=== PATIENT | female | born 1965 | race African-American/Black ===

== ENCOUNTER 2024-04-17 18:26 | Observation (INO) | payer OTHER ==
[2024-04-17 21:32] LABS: Absolute Basophils 0.1 K/uL (0-0.5); Absolute Eosinophils 0.1 K/uL (0-0.5); Absolute Lymphocytes (CBC) 2.7 K/uL (0.7-4.9); Absolute Monocytes 0.6 K/uL (0.1-1.3); Absolute Neutrophil 5.5 K/uL (1.8-8.0); Basophils % 0.9 % (0-1.3); Eosinophils % 1.3 % (0-4.4); Hematocrit 35.6 % (36.0-45.0); Lymphocytes % 30.5 % (15.3-44.8); MCH 30.3 pg (27.0-35.0); MCHC 33.6 g/dL (32.0-36.0); Monocytes % 6.8 % (3.3-12.3); Neutrophils % 60.5 % (41.7-73.7); Nucleated Red Blood Cells % 0.1 % (0-0); Platelets 361 thou/uL (152-406); RBC Red Blood Cell Count 3.95 M/uL (3.86-4.86); Red Cell Distribution Width 12.6 % (12.1-15.2)
[2024-04-17 21:35] LABS: PT Prothrombin Time 11.7 SECONDS (9.4-12.5); PTT, Activated Partial Thromb 34.1 SECONDS (24.3-36.9); Protime INR 1.05
[2024-04-17 21:41] LABS: Anion Gap 6.5 mEq/L (5.0-15.0); Magnesium 2.1 mg/dL (1.6-2.4); Potassium 3.5 mEq/L (3.5-5.1); Troponin High Sensitivity 11.4 pg/mL (<58.9)
--- NOTE | 2024-04-17 22:19 | RAD REPORT ---
EXAM: CT brain without contrast HISTORY: right sided weakness and numbness COMPARISON: None TECHNIQUE: Multiple contiguous axial images were obtained and a CT of the brain without contrast. Sag ittal and coronal reformats were performed. One or more of the following dose reduction techniques were used: Automated exposure control, adjust ment of the mA and/or kV according to patient size, and/or iterative reconstruction. FINDINGS: No evidence of hydrocephalus, intracranial hemorrhage, or extra-axial fluid collection. Moderate brain atrophy with moderate periventricular and deep white matter chronic microvascular isc hemic changes present. Gliosis is noted in the left frontal region suggesting remote infarction. The calvarium is intact. The visualized paranasal sinuses and mastoid air cells are essentially clear . IMPRESSION: No evidence of acute intracranial abnormality. If there is persistent clinical concern for CVA, MR examination is recommended for further characteri zation.
--- NOTE | 2024-04-17 22:24 | RAD REPORT ---
EXAMINATION: CTA HEAD CLINICAL INDICATION: right sided weakness and numbness TECHNIQUE: Axial CT images were obtained through the head after intravenous contrast utilizing angiog raphic protocol with 3D post-processing (maximum intensity projection images, volume rendered images and/or shaded surface rendered images). One or more of the following dose reduction technique s were used: Automated exposure control, adjustment of the mA and/or kV according to patient size, and/or iterative reconstruction. Unless otherwise specified, incidental findings do not require dedic ated imaging follow-up. COMPARISON: No prior exam. FINDINGS: ICA: The petrous, cavernous, and supraclinoid segments of the bilateral internal carotid arteries are normal. The ophthalmic artery origins are visualized and normal. The posterior communicating arteries are patent. JARRED: Anterior cerebral arteries are normal bilaterally. The anterior communicating artery is patent. MCA: Middle cerebral arteries are normal bilaterally. CIGAR SORTER: Posterior cerebral arteries are normal bilaterally. Vertebrobasilar: The vertebral arteries are patent. The basilar artery is normal in appearance. Left vertebral artery is mildly dominant. 3D images confirm these findings. IMPRESSION: No significant flow abnormality is identified.
--- NOTE | 2024-04-17 22:27 | RAD REPORT ---
EXAMINATION: CTA NECK CLINICAL INDICATION: right sided numbness and weakness TECHNIQUE: Axial CT images were obtained from the aortic arch to the skull base after intravenous con trast utilizing angiographic protocol with 3D post-processing (maximum intensity projection images, volume rendered images and/or shaded surface rendered images). One or more of the following dose redu ction techniques were used: Automated exposure control, adjustment of the mA and/or kV according to patient size, and/or iterative reconstruction. Unless otherwise specified, incidental findings do not require dedicated imaging follow-up. COMPARISON: No prior exam. FINDINGS: AORTA: The imaged aortic arch is normal. CCA: The common carotid arteries are patent and normal in caliber. ICA/ECA: Bilateral internal and external carotid arteries are patent. There is no significant interna l carotid artery stenosis. VERTEBRAL: The cervical vertebral arteries are patent. Left vertebral artery is dominant. SOFT TISSUE: No significant neck soft tissue abnormalities. The visualized lung apices are clear. 3D images confirm these findings. IMPRESSION: No significant flow abnormality of the neck vessels is identified. NASCET criteria used. Mild 0-49% stenosis Moderate 50-69% stenosis Severe 70-99% stenosis
--- NOTE | 2024-04-17 22:42 | EDPHYS ---
Physician Documentation [facility] Name: Ro Malone Age: 58 yrs Sex: Female : 1965 Arrival Date: 04/17/2024 Time: 18:26 Bed 14 Private MD: ED Physician Juaquin Walters HPI: 04/17 19:10 This 58 yrs old Black Female presents to ER via Ambulatory with complaints of right rn side numbness and weakness. 19:10 The patient presents to the emergency department with weakness of the right upper rn extremity, right lower extremity, paresthesias of the right lower extremity, right upper extremity. Onset: The symptoms/episode began/occurred 3 day(s) ago. Context:. Severity of symptoms: At their worst the symptoms were mild in the emergency department the symptoms are unchanged. Current symptoms: Currently, the patient is not experiencing any symptoms. The patient has experienced a previous episode. The patient has not recently seen a physician. Pt reports 2-3 days of right sided weakness and numbness, has not gone away but waxes and wanes. No head injury or trauma. no fever. No chest pain or abd pain. Has had a stroke in past with residual right sided weakness. Has had right facial weakness since younger. Family and patient report these symptoms are new and worse than her baseline. No vision or speech problem. . Historical: - Allergies: 18:42 No Known Allergies; ap3 - PMHx: 18:42 Cerebrovascular accident; ap3 - Immunization history:: Client reports receiving the 2nd dose of the Covid vaccine. - Infectious Disease History:: Denies. - Social history:: Smoking status: Patient denies any tobacco usage or history of. - Family history:: not pertinent. - Hospitalizations: : No recent hospitalization is reported. ROS: 19:10 Constitutional: Negative for fever, chills, and weight loss, Neck: Negative for injury, rn pain, and swelling, Cardiovascular: Negative for chest pain, palpitations, and edema, Respiratory: Negative for shortness of breath, cough, wheezing, and pleuritic chest pain, Abdomen/GI: Negative for abdominal pain, nausea, vomiting, diarrhea, and constipation, Back: Negative for injury and pain, MS/Extremity: Negative for injury and deformity, Skin: Negative for injury, rash, and discoloration, Neuro: + right sided weakness and numbness Exam: 19:10 Constitutional: This is a well developed, well nourished patient who is awake, alert, rn and in no acute distress. Head/Face: Normocephalic, atraumatic. Eyes: Pupils equal round and reactive to light, extra-ocular motions intact. Cardiovascular: Regular rate and rhythm. No pulse deficits. Respiratory: No increased work of breathing, no retractions or nasal flaring. Abdomen/GI: Soft, non-tender Skin: Warm, dry MS/ Extremity: Pulses equal, no cyanosis. Neuro: Awake and alert, GCS 15, oriented to person, place, time, and situation. Cranial nerves II-XII grossly intact. Motor strength 4/5 RUE/RLE, 5/5 LLE/LUE. Deecreased sensation to touch RUE/RLE. 22:00 ECG was reviewed by the Attending Physician. rn Vital Signs: 18:41 BP 167 / 103; Pulse 79; Resp 17; Temp 98.2(O); Pulse Ox 99% on R/A; Weight 99.79 kg; ap3 Height 5 ft. 4 in. ; 19:05 BP 145 / 72; Pulse 81; Resp 18; Pulse Ox 99% ; kj2 19:48 BP 125 / 79; Pulse 81; Resp 18; Temp 98.1(O); Pulse Ox 100% on R/A; kj2 21:17 BP 136 / 90; Pulse 69; Resp 18; Pulse Ox 98% on R/A; kj2 23:12 BP 153 / 97; Pulse 88; Resp 20; Pulse Ox 100% ; kj2 18:41 Body Mass Index 37.76 (99.79 kg, 162.56 cm) ap3 MDM: 18:56 Medical Screening Exam initiated rn 22:37 Data reviewed: vital signs, nurses notes, lab test result(s), radiologic studies, CT rn scan, and as a result, I will admit patient. 22:38 Counseling: I had a detailed discussion with the patient and/or guardian regarding the rn historical points, exam findings, and any diagnostic results supporting the discharge/admit diagnosis, lab results, radiology results, the need for further work-up and treatment in the hospital. Response to treatment: There is no appreciated change of the patient's symptoms at this time. 04/17 19:07 Order name: Basic Metabolic Panel; Complete Time: 21:58 rn 04/17 19:07 Order name: CBC with Diff; Complete Time: 21:58 rn 04/17 19:07 Order name: High Sensitivity Troponin; Complete Time: 21:58 rn 04/17 19:07 Order name: Magnesium; Complete Time: 21:58 rn 04/17 19:07 Order name: Protime (+inr); Complete Time: 21:58 rn 04/17 19:07 Order name: Ptt, Activated; Complete Time: 21:58 rn 04/17 23:23 Order name: Magnesium [facility] 04/17 23:23 Order name: Phosphorus [facility] 04/17 23:23 Order name: Lipid Profile [facility] 04/17 23:23 Order name: Lipid Profile [facility] 04/17 19:07 Order name: CT Neck Angio; Complete Time: 22:28 rn 04/17 19:07 Order name: CT Head Brain wo Cont; Complete Time: 22:28 rn 04/17 19:13 Order name: Head angio; Complete Time: 22:28 [facility] 04/17 23:23 Order name: Echo with Doppler [facility] 04/17 23:23 Order name: Stroke Protocol [facility] 04/17 23:24 Order name: Brain Wo Cont [facility] 04/17 19:07 Order name: EKG; Complete Time: 19:07 rn 04/17 23:23 Order name: CONS Physician Consult [facility] 04/17 23:23 Order name: IRF Screen [facility] 04/17 23:23 Order name: Physical Therapy Consult [facility] 04/17 23:23 Order name: Speech Therapy Consult [facility] 04/17 23:28 Order name: Occupational Therapy Consult [facility] 04/17 23:28 Order name: Speech Therapy Consult [facility] 04/17 19:07 Order name: Accucheck; Complete Time: 23:15 rn 04/17 19:07 Order name: Cardiac monitoring; Complete Time: 23:14 rn 04/17 19:07 Order name: EKG - Nurse/Tech; Complete Time: 21:16 rn 04/17 19:07 Order name: IV Saline Lock; Complete Time: 21:16 rn 04/17 19:07 Order name: Labs collected and sent; Complete Time: 21:16 rn 04/17 19:07 Order name: O2 Per Protocol; Complete Time: 21:16 rn 04/17 19:07 Order name: O2 Sat Monitoring; Complete Time: 21:16 rn 04/17 19:07 Order name: Stroke Swallow Screen; Complete Time: 21:16 rn EC:00 Rate is 76 beats/min. Rhythm is irregular. Left axis deviation noted. QRS is positive rn in lead aVF and negative in lead I. QRS interval is prolonged at 140 msec. QT interval is normal. No Q waves. T waves are Normal. No ST changes noted. Clinical impression: NSR w/ Non-specific ST/T Changes. Interpreted by me. Reviewed by me. Administered Medications: 23:02 Drug: foLIC Acid IVPB 1 mg IVPB once Route: IVPB; Site: right antecubital; kj2 23:02 Follow up: IV Status: Completed infusion; IV Intake: 0.2ml kj2 23:02 Follow up: IV Status: Completed infusion kj2 23:02 Follow up: Response: No adverse reaction; IV Status: Completed infusion; IV Intake: kj2 0.2ml 23:12 Drug: Aspirin PO Chewable Tablet 324 mg PO once; 81 mg tablets x 4 Route: PO; kj2 23:38 Follow up: Response: No adverse reaction kj2 23:12 Drug: Clopidogrel PO 75 mg PO once Route: PO; kj2 23:38 Follow up: Response: No adverse reaction kj2 Disposition Summary: 04/17/24 22:41 Hospitalization Ordered Notes: Hospitalization Status: Observation rn Provider: Prince Tiesha rn Location: Telemetry/MedSurg (observation) rn Condition: Stable rn Problem: new rn Symptoms: are unchanged rn Bed/Room Type: Standard rn Room Assignment: 411(04/17/24 23:28) cg Diagnosis - Weakness rn - Paresthesia of skin rn - Cerebral infarction, unspecified rn Forms: - Medication Reconciliation Form rn - SBAR form rn - Leadership Thank You Letter rn Signatures: Dispatcher [employer] EDMS Juaquin Walters MD MD rn Garcia, Cindy RN RN Lydia Best RN RN ap3 Junie Sung RN RN kj2 Corrections: (The following items were deleted from the chart) 19:07 19:07 Head Brain Wo Cont+CT.RAD.BRZ ordered. EDMS EDMS 23: 22:41 rn cg
--- NOTE | 2024-04-17 22:42 | ER ---
Nurse's Notes [facility] Name: Ro Malone Age: 58 yrs Sex: Female : 1965 Arrival Date: 04/17/2024 Time: 18:26 Bed 14 Private MD: Diagnosis: Weakness;Paresthesia of skin;Cerebral infarction, unspecified Presentation: 04/17 18:41 Chief complaint: Patient states: she has been experiencing right sided weakness and ap3 numbness for "a few days". 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 Coronavirus screen: At this time, the client does not indicate any symptoms associated with coronavirus-19. Ebola Screen: No symptoms or risks identified at this time. Initial Sepsis Screen: Does the patient meet any 2 criteria? No. Patient's initial sepsis screen is negative. Does the patient have a suspected source of infection? No. Patient's initial sepsis screen is negative. Risk Assessment: Do you want to hurt yourself or someone else? Patient reports no desire to harm self or others. Onset of symptoms is unknown. 18:41 Method Of Arrival: Ambulatory ap3 18:44 Acuity: DARCI 2 ap3 Triage Assessment: 18:43 General: Appears in no apparent distress. Behavior is calm, cooperative, appropriate ap3 for age. Pain: Denies pain. Neuro: Level of Consciousness is awake, alert, obeys commands, Oriented to person, place, time, situation, Weakness in right leg(s). Neuro: patient states she has right sided deficits from previous stroke. Cardiovascular: Patient's skin is warm and dry. Respiratory: Airway is patent Respiratory effort is even, unlabored, Respiratory pattern is regular, symmetrical. Historical: - Allergies: 18:42 No Known Allergies; ap3 - PMHx: 18:42 Cerebrovascular accident; ap3 - Immunization history:: Client reports receiving the 2nd dose of the Covid vaccine. - Infectious Disease History:: Denies. - Social history:: Smoking status: Patient denies any tobacco usage or history of. - Family history:: not pertinent. - Hospitalizations: : No recent hospitalization is reported. Screenin:44 Abuse screen: Denies threats or abuse. Nutritional screening: No deficits noted. ap3 Tuberculosis screening: No symptoms or risk factors identified. 19:05 [facility] ED Fall Risk Assessment (Adult) History of falling in the last 3 months, kj2 including since admission No falls in past 3 months (0 pts) Confusion or Disorientation No (0 pts) Intoxicated or Sedated No (0 pts) Impaired Gait No (0 pts) Mobility Assist Device Used No (0 pt) Altered Elimination No (0 pt) Score/Fall Risk Level 0 - 2 = Low Risk Maintained a safe environment, Educated pt \\T\\ family on fall prevention, incl call for assistance when getting out of bed, Hourly rounding (assess needs \\T\\ fall precautionary measures) done. Assessment: 19:05 General: Appears in no apparent distress. Behavior is calm, cooperative. Pain: Denies kj2 pain. Neuro: Level of Consciousness is awake, alert, obeys commands. Cardiovascular: Patient's skin is warm and dry. Respiratory: Airway is patent Respiratory effort is even, unlabored. GI: No signs and/or symptoms were reported involving the gastrointestinal system. : No signs and/or symptoms were reported regarding the genitourinary system. 21:16 Reassessment: PATIENT DRANK 4OZ OF WATER WITHOUT DIFFICULTY. kj2 21:17 Reassessment: Patient appears in no apparent distress at this time. Patient and/or kj2 family updated on plan of care and expected duration. Pain level reassessed. Patient is alert, oriented x 3, equal unlabored respirations, skin warm/dry/pink. 22:15 Reassessment: Patient appears in no apparent distress at this time. Patient and/or kj2 family updated on plan of care and expected duration. Pain level reassessed. Patient is alert, oriented x 3, equal unlabored respirations, skin warm/dry/pink. 23:32 Reassessment: Patient appears in no apparent distress at this time. Patient and/or kj2 family updated on plan of care and expected duration. Pain level reassessed. Patient is alert, oriented x 3, equal unlabored respirations, skin warm/dry/pink. 23:57 Reassessment: Patient appears in no apparent distress at this time. Patient and/or kj2 family updated on plan of care and expected duration. Pain level reassessed. Patient is alert, oriented x 3, equal unlabored respirations, skin warm/dry/pink. Vital Signs: 18:41 BP 167 / 103; Pulse 79; Resp 17; Temp 98.2(O); Pulse Ox 99% on R/A; Weight 99.79 kg; ap3 Height 5 ft. 4 in. ; 19:05 BP 145 / 72; Pulse 81; Resp 18; Pulse Ox 99% ; kj2 19:48 BP 125 / 79; Pulse 81; Resp 18; Temp 98.1(O); Pulse Ox 100% on R/A; kj2 21:17 BP 136 / 90; Pulse 69; Resp 18; Pulse Ox 98% on R/A; kj2 23:12 BP 153 / 97; Pulse 88; Resp 20; Pulse Ox 100% ; kj2 18:41 Body Mass Index 37.76 (99.79 kg, 162.56 cm) ap3 ED Course: 18:29 Patient arrived in ED. ra3 18:44 Triage completed. ap3 18:44 Arm band placed on right wrist. ap3 18:44 Patient has correct armband on for positive identification. Bed in low position. Call ap3 light in reach. Adult w/ patient. 18:56 Juaquin Walters MD is Attending Physician. rn 19:05 Provided Education on: CALL LIGHT. kj2 19:12 Junie Sung RN is Primary Nurse. kj2 21:05 Inserted saline lock: 20 gauge in right antecubital area, using aseptic technique. bm8 ,using aseptic technique. ultrasound guided Blood collected. Flushed with 10 mL NS. 21:07 Radiology exam delayed due to lab results not completed at this time. IV insertion mw3 attempt and/or patient not having appropriate IV at this time. 21:16 No provider procedures requiring assistance completed. kj2 22:08 CT Neck Angio In Process Unspecified. EDMS 22:08 CT Head Brain wo Cont In Process Unspecified. EDMS 22:08 Head angio In Process Unspecified. EDMS 22:40 Prince Motley MD is Hospitalizing Provider. rn 23:33 Assisted to bathroom. kj2 23:40 Patient admitted, IV remains in place. kj2 Administered Medications: 23:02 Drug: foLIC Acid IVPB 1 mg IVPB once Route: IVPB; Site: right antecubital; kj2 23:02 Follow up: IV Status: Completed infusion; IV Intake: 0.2ml kj2 23:02 Follow up: IV Status: Completed infusion kj2 23:02 Follow up: Response: No adverse reaction; IV Status: Completed infusion; IV Intake: kj2 0.2ml 23:12 Drug: Aspirin PO Chewable Tablet 324 mg PO once; 81 mg tablets x 4 Route: PO; kj2 23:38 Follow up: Response: No adverse reaction kj2 23:12 Drug: Clopidogrel PO 75 mg PO once Route: PO; kj2 23:38 Follow up: Response: No adverse reaction kj2 Medication: 19:36 VIS not applicable for this client. kj2 Intake: 23:02 IV: 0ml; Total: 0ml. kj2 23:02 IV: 0ml; Total: 0ml. kj2 Outcome: 22:41 Decision to Hospitalize by Provider. rn 23:39 Admitted to Med/surg via wheelchair, room 411, kj2 23:39 Condition: stable 23:39 Instructed on the need for admit, 04/18 01:02 Patient left the ED. kj2 Signatures: Dispatcher [employer] EDMS Juaquin Walters MD MD rn Prokisch, Amanda, RN RN ap3 Denise Yanes 3 Maris Andrade 3 You Taylor RN RN bm8 Junie Sung, RN RN kj2
[2024-04-17] MEDS ORDERED: CLOPIDOGREL 75 MG TABLET ONE (22:54)
[2024-04-17] MEDS ORDERED: ASPIRIN 81 MG CHEWABLE TABLET ONE (22:55)
[2024-04-17] MEDS ORDERED: FOLIC ACID 5 MG/ML VIAL ONE (22:56)
[2024-04-17] MEDS ORDERED: ONDANSETRON 4 MG/2 ML VIAL IV PRN (23:18)
--- NOTE | 2024-04-17 23:26 | P.HP ---
Certification for Inpatient Patient admitted to: Observation With expected LOS: <2 Midnights Practitioner: I am a practitioner with admitting privileges, knowledge of patient current condition, hospital course, and medical plan of care. Services: Services provided to patient in accordance with Admission requirements found in Title 42 Section 412.3 of the Code of Federal Regulations Patient History Date of Service: 04/17/24 Reason for admission: Right-sided numbness and tingling History of Present Illness: Patient is a 58-year-old -[place] female with a past medical history of hypertension and obesity. She presented to the ER complaining of acute onset of right-sided numbness and tingling which started the morning of admission. She also has weakness on that side. Patient has a normal speech. Workup in the ER included the CT head and CTA head and neck all of which were unremarkable. Patient is being admitted for stroke workup. Physical Examination - Physical Exam General: Acute distress HEENT: Atraumatic, Normocephalic, EOMI Respiratory: Clear to auscultation bilaterally, Normal air movement Cardiovascular: No edema, Normal pulses, Regular rate/rhythm, Normal S1 S2 Neurological: Normal speech, Abnormal tone, Abnormal sensation - Studies Laboratory Data (last 24 hrs) 04/17/24 04/17/24 04/17/24 21:02 21:02 21:02 WBC 9.00 Hgb 12.0 Hct 35.6 L Plt Count 361 PT 11.7 INR 1.05 APTT 34.1 Sodium 138 Potassium 3.5 BUN 13 Creatinine 1.20 H Glucose 116 H Magnesium 2.1 Assessment and Plan - Problems (Diagnosis) (1) CVA (cerebral vascular accident) Current Visit: Yes Status: Acute (2) Hypertension Current Visit: Yes Status: Acute - Plan Assessment This is a 58-year-old -[place] female with hypertension obesity who is being admitted for CVA workup after she presented with right-sided numbness and tingling, and possibly weakness. CT head and CTA head and neck were unremarkable. Patient still has focal deficit on physical exam. Suspected CVA Hypertension Obesity Plan: Will admit under observation with telemetry Formal brain MRI ordered Will also check for 2D echo and lipid panel PT/OT before discharge Continue patient on aspirin and atorvastatin Nonurgent consult to neurology DVT prophylaxis - Advance Directives Does patient have a Living Will: No Does patient have a Durable POA for Healthcare: No
[2024-04-18] MEDS: NA CHLORIDE 0.9% 1,000 ML IV SCH (01:32)
[2024-04-18 01:52] VITALS: BMI 39.4
[2024-04-18] MEDS ORDERED: INFLUENZA VACCINE (for 6+ mo) 0.5 ML DOSE IMVAC ONE (08:00)
[2024-04-18] MEDS: ASPIRIN EC 81 MG TAB PO SCH (08:29)
[2024-04-18] MEDS: POTASSIUM 25 MEQ EFFERV TAB PO ONE (08:29)
[2024-04-18] MEDS: ENOXAPARIN 40 MG/0.4 ML SQ SCH (08:30)
[2024-04-18 08:40] VITALS: O2SAT 94
[2024-04-18] MEDS: ALPRAZOLAM 0.25 MG TABLET PO ONE (09:45)
[2024-04-18] MEDS: lisinopriL 20 MG TAB PO SCH (09:58)
[2024-04-18] MEDS ORDERED: SODIUM CHLORIDE 0.9% 10ML INJ IV PRN (09:58)
[2024-04-18] MEDS: carvediloL 6.25 MG TAB PO SCH (09:59)
[2024-04-18] MEDS: AMLODIPINE 10 MG TAB PO SCH (10:00)
[2024-04-18] MEDS: LORazepam 2 MG/ML VIAL IV ONE (10:06)
[2024-04-18] MEDS: levETIRAcetam 500 MG TAB PO SCH (10:06)
[2024-04-18] MEDS: PANTOPRAZOLE 40 MG INJ IVP SCH (10:07)
--- NOTE | 2024-04-18 10:26 | P.PN ---
Subjective Date of Service: 04/18/24 Chief Complaint: Right-sided numbness and tingling No change in patient's condition she has been having this right sided numbness arm and leg started yesterday. With some weakness and has a history of stroke history of seizures some right sided symptoms before CT scan of the head was negative patient is scheduled for an MRI planing of some abdominal discomfort Review of Systems is unable to be obtained Physical Examination - Vital Signs Temperature: 97.2 F Blood Pressure: 138/78 Pulse: 80 Respirations: 16 Pulse Ox (%): 96 - Physical Exam General: Alert, Oriented x3, Mild distress HEENT: Atraumatic Neck: Supple Respiratory: Clear to auscultation bilaterally Cardiovascular: No edema, Normal pulses Gastrointestinal: Normal bowel sounds, Soft and benign Neurological: Normal speech (Has mild weakness of the right side drift of the right arm focality raising her right leg facial deficit no speech passed bedside swallowing) - Studies Laboratory Data (last 24 hrs) 04/17/24 04/17/24 04/17/24 21:02 21:02 21:02 WBC 9.00 Hgb 12.0 Hct 35.6 L Plt Count 361 PT 11.7 INR 1.05 APTT 34.1 Sodium 138 Potassium 3.5 BUN 13 Creatinine 1.20 H Glucose 116 H Magnesium 2.1 Assessment And Plan - Current Problems (Diagnosis) (1) CVA (cerebral vascular accident) Current Visit: Yes Status: Acute Plan: Patient is 58 years of age with prior history of stroke admitted with right- sided weakness scan of the head is so far negative for stroke MRI is pending history of seizures daughter at the bedside she has been complaining of some abdominal discomfort has been scheduled for an MRI neurology consult states that she wants to take her to [facility] for further follow-up patient's medications have been resumed from hypertension there is no history of cardiopulmonary problems labs chemistries all reviewed unremarkable patient given 1 dose of Ativan prior to the MRI Qualifiers: Laterality of affected vessel: unspecified
--- NOTE | 2024-04-18 11:24 | RAD REPORT ---
EXAMINATION: MRI BRAIN WITHOUT CONTRAST CLINICAL INDICATION: CVA TECHNIQUE: Multiplanar multisequence MR images of the brain were obtained without intravenous contras t. Unless otherwise specified, incidental findings do not require dedicated imaging follow-up. COMPARISON: 04/17/2024 FINDINGS: INTRACRANIAL: Diffusion-weighted images show no acute or early subacute infarction. There is mild bra in atrophy with mildT2/FLAIR hyperintensities in the periventricular and deep white matter regions, likely representing chronic microvascular ischemic changes. There is no mass effect or midline shift. No abnormal extraaxial fluid collection. Gliosis is noted left medial frontal lobe likely related to old infarct. VASCULATURE: Normal signal voids in the larger intracranial arteries and dural venous sinuses. SINUSES: The paranasal sinuses and mastoid air cells are predominantly clear. BONE: The marrow signal pattern is within normal limits. IMPRESSION: Negative for acutre CVA or other acute intracranial finding. Evidence of prior infarction medial left frontal lobe.
--- NOTE | 2024-04-18 12:35 | EKG ---
Test Date: 2024-04-17 Test Time: 19:42:05 Biology Manager: ASTRID MEASUREMENT RESULTS: Intervals: Rate: 76 KS: 178 QRSD: 140 QT: 414 QTc: 465 [place]: P: 49 KS: 178 QRS: -33 T: 21 INTERPRETIVE STATEMENTS: Sinus rhythm with occasional premature ventricular complexes Left axis deviation Right bundle branch block Abnormal ECG No previous ECG available for comparison Electronically Signed On 04-18-24 12:34:19 CDT by London Johnson
--- NOTE | 2024-04-18 13:41 | ECHO ---
HEIGHT: 5 ft 4 in WEIGHT: 230 lb 0 oz DATE OF STUDY: 04/18/[address]: Prince Tunde Motley MD 2-DIMENSIONAL: YES M.MODE: YES DOPPLER: YES COLOR FLOW: YES TDS: PORTABLE: YES DEFINITY: BUBBLE STUDY: DIAGNOSIS: STROKE CARDIAC HISTORY: CATHERIZATION: NO SURGERY: NO PROSTHETIC VALVE: NO PACEMAKER: NO MEASUREMENTS (cm) DIASTOLIC (NORMALS) SYSTOLIC (NORMALS) IVSd 1.3 (0.6-1.2) LA Diam 2.4 (1.9-4.0) LVEF 60-65% LVIDd 3.6 (3.5-5.7) LVIDs 2.2 (2.0-3.5) %FS 38% LVPWd 1.3 (0.6-1.2) Ao Diam 2.5 (2.0-3.7) 2 DIMENSIONAL ASSESSMENT: RIGHT ATRIUM: NORMAL LEFT ATRIUM: NORMAL RIGHT VENTRICLE: NORMAL LEFT VENTRICLE: NORMAL TRICUSPID VALVE: NORMAL MITRAL VALVE: NORMAL PULMONIC VALVE: NORMAL AORTIC VALVE: NORMAL PERICARDIAL EFFUSION: NONE AORTIC ROOT: NORMAL LEFT VENTRICULAR WALL MOTION: NORMAL DOPPLER/COLOR FLOW: NORMAL COMMENTS: 1. NORMAL LEFT VENTRICULAR SYSTOLIC FUNCTION, EJECTION FRACTION 60-65%, NORMAL WALL MOTION 2. NORMAL DIASTOLIC FUNCTION TECHNOLOGIST: ALLEN PATE
--- NOTE | 2024-04-18 15:23 | P.DS ---
Admission Date: 04/18/24 Discharge Date: 04/18/24 Disposition: ROUTINE DISCHARGE Discharge Condition: FAIR Reason for Admission: Right-sided numbness and tingling - Problems (1) CVA (cerebral vascular accident) Current Visit: Yes Status: Acute Qualifiers: Laterality of affected vessel: unspecified Brief History of Present Illness: See progress note Hospital Course: See progress notes. Admitted with Right sided paresis. NE of stroke on CT and MRI. ECHO normal S/B Dr. Infante. Poss MAIRA paralysis or cramps. Pt discahrged home on Baclofen and Magnesium, Daughter present To f/u with Neurology. passed swallow test Vital Signs/Physical Exam: Temp Pulse Resp BP Pulse Ox 97.9 F 73 16 137/81 95 04/18/24 12:00 04/18/24 12:00 04/18/24 12:00 04/18/24 12:00 04/18/24 12:00 Laboratory Data at Discharge: WBC 9.00 thou/uL (4.3-10.9) 04/17/24 21:02 Hgb 12.0 g/dL (12.0-15.0) 04/17/24 21:02 Hct 35.6 % (36.0-45.0) L 04/17/24 21:02 Plt Count 361 thou/uL (152-406) 04/17/24 21:02 PT 11.7 SECONDS (9.4-12.5) 04/17/24 21:02 INR 1.05 04/17/24 21:02 APTT 34.1 SECONDS (24.3-36.9) 04/17/24 21:02 Sodium 138 mEq/L (136-145) 04/17/24 21:02 Potassium 3.5 mEq/L (3.5-5.1) 04/17/24 21:02 BUN 13 mg/dL (7-18) 04/17/24 21:02 Creatinine 1.20 mg/dL (0.55-1.02) H 04/17/24 21:02 Glucose 116 mg/dL (74-106) H 04/17/24 21:02 Magnesium 2.1 mg/dL (1.6-2.4) 04/17/24 21:02 Triglycerides 75 mg/dL (<150) 04/18/24 04:39 Cholesterol 162 mg/dL (<200) 04/18/24 04:39 HDL Cholesterol 65 mg/dL (40-60) H 04/18/24 04:39 Cholesterol/HDL Ratio 2.49 04/18/24 04:39 Home Medications: Amlodipine [Norvasc*] 1 tab PO DAILY 04/18/24 Aspirin 1 tab PO DAILY 04/18/24 Atorvastatin Calcium [Lipitor] 1 tab PO DAILY 04/18/24 Baclofen 10 mg PO DAILY PRN 30 Days #30 tab 04/18/24 Cyclobenzaprine HCl [Flexeril] 1 tab PO DAILY 04/18/24 Ergocalciferol (Vitamin D2) [Drisdol] 1 tab PO EVERY 7TH DAY 04/18/24 Ezetimibe [Zetia*] 1 tab PO DAILY 04/18/24 Ferrous Sulfate [Iron] 1 tab PO DAILY 04/18/24 Hydrochlorothiazide 1 tab PO DAILY 04/18/24 Levetiracetam [Keppra] 1 tab PO BID 04/18/24 Magnesium Oxide [Magnesium] 400 mg PO BID 30 Days #60 tab 04/18/24 carvediloL [Carvedilol] 1 tab PO BID 04/18/24 lisinopriL [Lisinopril] 1 tab PO DAILY 04/18/24 New Medications: Baclofen 10 mg PO DAILY PRN 30 Days #30 tab PRN Reason: cramps Magnesium Oxide [Magnesium] 400 mg PO BID 30 Days #60 tab Diet: Regular Activity: Fall precautions Followup: Denilson Infante MD [ASSOCIATE-ACTIVE - CAN ADMIT] - (call for an apointment for w/n one month) NONE,NONE [Primary Care Provider] -
[2024-04-18 15:28] LABS: Phosphorus 2.5 mg/dL (2.5-4.9)
[2024-04-18] MEDS: BACLOFEN 10 MG TAB PO SCH (15:47)
[2024-04-18] MEDS: MAGNESIUM OXIDE 400 MG TAB PO SCH (15:53)
[2024-04-18 16:18] VITALS: BP 139/80; TEMP 98
--- NOTE | 2024-04-18 20:52 | CON ---
Reason For Consultation: Consultation called because of possible seizure with Zac's paralysis. History Of Present Illness: Ms. Malone is a 58-year-old patient with a history of stroke affecting her left brain, right body, from which she has recovered fairly well. It is noted that information w as provided by the patient's daughter who is nurse in the ICU. She reportedly developed worsening ri ght-sided numbness, weakness, and tingling and some aphasia. She came to [facility]. Head CT scan and CT angiogram showed no acute ischemic hemorrhagic findings. Subsequent brain MRI which w as done today to rule out presence of any acute ischemic or hemorrhagic strokes. The study did show mild brain atrophy, small chronic small vessel ischemic disease, and it was gliosis in the left media l frontal lobe related to an old infarct. It is likely that the patient's symptoms are a sequelae of the chronic stroke. CT angiogram of her head and neck showed no high-grade stenosis. The patient's daughter did note that she was treated for seizures with Keppra. However, she is very poorly compli ant and may only take the medication once or twice weekly. The patient does live alone and was fairl y independent prior to this recent bout of new weakness. Past Medical History: Stroke, seizures, hypertension. Allergies: NO KNOWN DRUG ALLERGIES. Medications: Iron tablets daily, vitamin D daily, hydrochlorothiazide, potassium 10 mEq daily, Prini emely 20 mg daily, Keppra 750 mg twice daily, ferrous sulfate 325 mg daily, Zetia 10 mg daily, Flexeril 5 mg daily, Plavix 75 mg daily, Coreg 6.25 mg twice daily, Lipitor 80 mg at bedtime, aspirin 81 mg d aily, Norvasc 10 mg daily. Family History: Noncontributory. Social History: Denies alcohol, tobacco, or IV drug use. Review of Systems: Again, prior history of stroke with right-sided weakness, aphasia, and possible seizures which the fr equency cannot be easily obtained at this point, the patient is unaware of when she is having these p ossible episodes. She is followed by a neurologist in [place]. Physical Examination: Vital Signs: Blood pressure 139/80, pulse 73 to 92, respiratory rate 14 to 18, temperature 98.0, oxy gen saturation 95%. Weight 230 pounds, height 5 feet 4 inches, BMI 39.5. General: Ms. Malone is resting comfortably in her room. She is in no significant distress. HEENT: She is normocephalic, atraumatic. Sclerae anicteric. Oropharynx pink and moist. Neck: Supple. Chest: Clear. Heart: Regular. Extremities: Show no significant clubbing, cyanosis, or edema. Neurologic: She is alert, oriented to person, place, time, situation. Follows commands appropriatel y. She has no obvious focal deficits despite her stroke. Face, arm, and leg shows symmetry. Sensat ion, stocking-glove loss, light touch temperature, symmetric reflexes. Coordination slow, but intact . She did have a bedside swallow evaluation and regular thin liquid diet recommended. The physical therapist did evaluate the patient and she was able to perform all the activities recommended festus [place], ambulated without an assistive device over 200 feet. It was recommended that she did not req uire any continued therapy. Assessment: Ms. Malone is a 58-year-old patient with multiple medical problems including prior stro ke, seizures, likely very poorly compliant with medications, hypertension, chronic muscle spasms, dys lipidemia, iron deficiency, and some spasming in the muscles. Plan: She should continue Keppra 750 mg twice daily. Continue with all medications for her comorbid conditions as instructed. She should follow with her neurologist within the month and may require ambulatory EEG monitoring to characterize any unknown seizures and to assess seizure frequency. She is okay to be discharged home today. TED/VANESSA Voice ID: [id number] Report ID: [id number]
[2024-04-18] MEDS ORDERED: ATORVASTATIN 80 MG TAB PO SCH (21:00)
[2024-04-19] MEDS ORDERED: hydroCHLOROthiazide 25 MG TAB PO SCH (09:00)
[2024-04-19] MEDS ORDERED: CYCLOBENZAPRINE 10 MG TAB PO SCH (09:00)
[2024-04-19] MEDS ORDERED: ATORVASTATIN 80 MG TAB PO SCH (09:00)
[2024-04-19] MEDS ORDERED: ASPIRIN 81 MG CHEWABLE TABLET PO SCH (09:00)
[2024-04-19] MEDS ORDERED: FERROUS SULFATE 325 MG TAB PO SCH (09:00)
[2024-04-19] MEDS ORDERED: EZETIMIBE 10 MG TAB PO SCH (09:00)
== END 2024-04-18 18:36 | disposition home or self-care (01) ==
LOC: ER 18:26 → 4TH 04-18 00:35
PROVIDERS: ADMIT Internal Medicine; ATTEND Internal Medicine Sleep Medicine
DX: R20.2 Paresthesia of skin (principal); R53.1 Weakness; I10 Essential (primary) hypertension; E66.9 Obesity, unspecified; E78.5 Hyperlipidemia, unspecified; D50.9 Iron deficiency anemia, unspecified; Z68.39 Body mass index [BMI] 39.0-39.9, adult; Z86.73 Personal history of transient ischemic attack (TIA), and cerebral infarction without residual deficits
CPT/HCPCS: 85025; 80048; 36415; 83735; 85610; 85730; 84484; 70450; 70496; 70498; Q9967; 70551; 80061; 84100; 92610; 93005; 93306; 96374; 97116; 97161; 99285; G0378; J1650; J2470; J7030